=== PATIENT | male | born 1955 | race Caucasian/White ===

== ENCOUNTER 2023-09-09 13:35 | Outpatient (RCR) | payer MEDICARE, BC, SELFPAY | END 2023-10-01 23:59 | LOC: NS 13:35 | PROVIDERS: PCP Internal Medicine | DX: Z71.3 Dietary counseling and surveillance (principal); E11.9 Type 2 diabetes mellitus without complications | CPT/HCPCS: 97802 ==

== ENCOUNTER → 2025-08-16 | Outpatient (CLI) | payer MEDICARE, BC, SELFPAY ==
--- NOTE | 2025-08-16 15:28 | CT_ITS ---
PROCEDURE: SINUS/FACIAL BONE 08/16/2025 REASON FOR EXAM: ATYPICAL FACIAL PAIN TECHNIQUE: Procedure Code: CTSI Modality: CT Procedure: SINUS/FACIAL BONE Coronal and Sagittal reconstruction series were provided. One or more dose reduction techniques were used (e.g., Automated exposure control, adjustment of the mA and/or kV according to patient size, use of iterative reconstruction technique). RADIATION DOSE SUMMARY: CTDlvol: 33.06 mGy DLP: 788.40 mGycm COMPARISON: None FINDINGS: Frontal: Frontal sinuses are clear. Ethmoid: Partial opacification of the left ethmoid sinus. Sphenoid: Sphenoid sinuses clear. Maxillary: Opacification of the left maxillary sinus with extension of the soft tissues within the left ethmoid sinus and left nasal cavity suggestive of possible polyposis. Nodular mucosal thickening at the base of the right maxillary sinus suggestive of retention cysts. Turbinates: Hypertrophy of the inferior turbinates bilaterally. Nasal Septum: Midline Mastoids/Middle Ears: Clear. CT/Sinus/Facial Bone IMPRESSION: Opacification of the left maxillary sinus with soft tissue density extending to the left nasal cavity as well as the left ethmoid sinus. Nodular mucosal thickening at the base of the right maxillary sinus suggestive of polyps or retention cyst. Hypertrophy of the inferior turbinates bilaterally. Reading Location: [place] [id number]
== END | disposition home or self-care (01) ==
LOC: CT 15:26
PROVIDERS: PCP Internal Medicine; Referring Provider Otolaryngology Otolaryngology/Facial Plastic Surgery; Visit Provider Otolaryngology Otolaryngology/Facial Plastic Surgery
DX: G50.1 Atypical facial pain (principal)
CPT/HCPCS: 70486